=== PATIENT | male | born 1960 | race Caucasian/White ===

== ENCOUNTER 2024-01-20 17:48 | Emergency (ER) | payer OTHER ==
[2024-01-20] MEDS: Lidocaine 1% 5 ML VIAL INJECT ONE (18:24)
[2024-01-20] MEDS: Diphtheria,Pertussis(Acell),Tetanus Vaccine 0.5 ML Syringe IM ONE (18:24)
== END 2024-01-20 19:00 | disposition home or self-care (01) ==
LOC: JP.ED 17:48
DX: S60.450A Superficial foreign body of right index finger, initial encounter (principal); I10 Essential (primary) hypertension; E03.9 Hypothyroidism, unspecified; Z23 Encounter for immunization; Z79.899 Other long term (current) drug therapy; Z79.890 Hormone replacement therapy; W45.8XXA Other foreign body or object entering through skin, initial encounter
CPT/HCPCS: 64450; 90471; 90715; 99283-25